=== PATIENT | male | born 1985 | race American Indian/Alaskan Native ===

== ENCOUNTER 2020-05-23 17:09 | Emergency (ER) | payer SELFPAY ==
[2020-05-23 17:40] VITALS: BP 125/70
== END 2020-05-23 20:00 | disposition left against medical advice (07) ==
LOC: ED 17:09
DX: K08.89 Other specified disorders of teeth and supporting structures (principal); Z53.21 Procedure and treatment not carried out due to patient leaving prior to being seen by health care provider

== ENCOUNTER 2021-08-28 10:28 | Emergency (ER) | payer SELFPAY | END 2021-08-28 14:51 | disposition left against medical advice (07) | LOC: ED 10:28 | DX: K08.89 Other specified disorders of teeth and supporting structures (principal); K03.81 Cracked tooth; Z53.21 Procedure and treatment not carried out due to patient leaving prior to being seen by health care provider ==